=== PATIENT | female | born 1990 | race Caucasian/White ===

== ENCOUNTER 2020-11-14 23:38 | Emergency (ER) | payer OTHER, SELFPAY ==
[2020-11-14 23:42] VITALS: BP 154/93; PULSE 106; RESP 16; TEMP 36.8; O2SAT 97; BMI 29.9
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
[2020-11-15] MEDS: Bacitracin Oint 14 GM TUBE 1 APPL TOPICAL (00:41)
== END 2020-11-15 00:55 | disposition home or self-care (01) ==
PROVIDERS: Emergency Provider Internal Medicine
DX: T24.211A Burn of second degree of right thigh, initial encounter (principal); T31.0 Burns involving less than 10% of body surface; M79.651 Pain in right thigh; X10.2XXA Contact with fats and cooking oils, initial encounter; Y93.G3 Activity, cooking and baking; Y92.000 Kitchen of unspecified non-institutional (private) residence as the place of occurrence of the external cause; Y99.9 Unspecified external cause status
CPT/HCPCS: 99283